=== PATIENT | male | born 1970 | race African-American/Black ===

== ENCOUNTER 2021-03-19 17:29 | Observation (INO) | payer BC ==
[~2021-03-19] VITALS: Ht 188 cm; Wt 127.3 kg
--- NOTE | 2021-03-19 18:22 | PHYS DOC ---
Past History Past Surgical History: Other Additional Past Surgical Histo: skin graft right lower leg Alcohol Use: Occasionally General Adult EDM: Chief Complaint: CELLULITIS HPI: HPI: ".. I ve been seeing a wound care clinic for 3 yrs on this venous stasis ulcer and cellulitis treatment.... But had not had any treatment for the past 4 weeks because we just moved here and I have not been able to get plugged into a wound care clinic.... Now it has gotten really painful and draining any increase edema... Been trying to keep it clean and treated at home by myself until I got in to a wound care clinic... Bottom afraid it has gotten ahead of me.... We just moved down here from [place].. Patient is a 51 year old male who presents with above hx and complaints of vienous stasis ulcer on Rt leg venous stasis ulcer the last three years. Patient has a large somewhat demarcated area of cellulitis and venous stasis ulcer. Has been apparently applying pressure dressing and clean gauze with significant serious drainage. Patient denies any history immunosuppression. Recent travel 4 weeks ago from [place]. Patient has completed Moderna first vaccination on Sunday. Has not completed flu vaccination. Does not remember his last tetanus. Review of Systems: Review of Systems: Constitutional: Denies fever or chills Eyes: Denies change in visual acuity HENT: Denies nasal congestion or sore throat Respiratory: Denies cough or shortness of breath Cardiovascular: Denies chest pain or edema GI: Denies abdominal pain, nausea, vomiting, bloody stools or diarrhea : Denies dysuria Musculoskeletal: Denies back pain or joint pain Integument: Right lower leg venous stasis ulcer chronic Neurologic: Denies headache, focal weakness or sensory changes Endocrine: Denies polyuria or polydipsia Lymphatic: Denies swollen glands Psychiatric: Denies depression or anxiety Family History: Family History: Noncontributory presentation Current Medications: Current Meds: Current Medications Medications (Trade) Dose Ordered Sig/Freddie Start Time Stop Time Status Last Admin Dose Admin Ceftriaxone Sodium (Rocephin Im) 1 gm 1X ONCE 03/19/21 18:30 03/19/21 18:31 UNV Diphtheria/ Pertussis/Tetanus Vacc (ADACEL TDap SYRINGE) 0.5 ml ONCE ONCE 03/19/21 18:30 03/19/21 18:31 UNV Lactated Ringer's 1,000 ml @ 1,000 mls/hr Q1H 03/19/21 18:30 03/19/21 19:29 UNV Morphine Sulfate (Morphine 10mg Syringe) 10 mg 1X ONCE 03/19/21 18:30 03/19/21 18:31 UNV Trimethoprim/ Sulfamethoxazole (Bactrim Ds) 1 tab 1X ONCE 03/19/21 18:30 03/19/21 18:31 UNV Allergies: Allergies: Allergies Coded Allergies Type Severity Reaction Last Updated Verified No Known Drug Allergies 03/19/21 No Physical Exam: PE: Constitutional: Moderate acute distress, non-toxic appearance. [] HENT: Normocephalic, atraumatic, bilateral external ears normal, oropharynx moist, no oral exudates, nose normal. [] Eyes: PERRLA, EOMI, conjunctiva normal, no discharge. [] Neck: Normal range of motion, no tenderness, supple, no stridor. [] Cardiovascular:Heart rate regular rhythm, no murmur [] Lungs & Thorax: Bilateral breath sounds equal apex with basilar crackles bilaterally on auscultation [] Abdomen: Bowel sounds normal, soft, no tenderness, no masses, no pulsatile masses. [] Skin: Warm, dry, no erythema, extensive right lower leg venous stasis ulcer and skin breakdown. Back: No tenderness, no CVA tenderness. [] Extremities: No tenderness, no cyanosis, no clubbing, ROM intact, bilateral ankle mid shaft edema. [] Neurologic: Alert and oriented X 3, normal motor function, normal sensory function, no focal deficits noted. [] Psychologic: Affect anxious, judgement normal, mood normal. [] Current Patient Data: Vital Signs: Vital Signs Date Time Temp Pulse Resp B/P (MAP) Pulse Ox O2 Delivery O2 Flow Rate FiO2 03/19/21 18:00 98.5 92 18 140/77 (98) 100 Room Air EKG: EKG: [] Radiology/Procedures: Radiology/Procedures: [] Impressions: [address] [address] IMAGING REPORT Signed PATIENT: LUCY CARDOZA ACCOUNT: [id number] : 1970 LOCATION: [address] [place] [address] AGE: 51 SEX: M EXAM STATUS: ADM IN ORD. PHYSICIAN: HA SUAREZ MD REASON: pain, OPEN WOUND X 3 YEARS, ENTIRE DISTAL HALF OF LOW LEG. PROCEDURE: TIBIA FIBULA RIGHT Exam: Right tibia and fibula 2 views INDICATION: Open wound 3 years TECHNIQUE: Frontal and lateral views left tibia and fibula Comparisons: None FINDINGS: Bone mineralization is normal. There is irregular periosteal reaction along the medial aspect of the distal tibia. There is diffuse soft tissue swelling overlying. No acute fractures identified. IMPRESSION: Mild periosteal reaction along the distal aspect of the tibia medially which could relate to an underlying infectious or inflammatory process. No acute fracture identified. Electronically signed by: Gautam Inman MD (03/19/2021 8:01 PM) [facility] DICTATED AND SIGNED BY: GAUTAM INMAN MD DATE: 03/19/211999 CC: HA SUAREZ MD; LIZETTE HERNANDEZ MD; PCP,NO ~MTH0 0 Heart Score: C/O Chest Pain: N/A HEART Score for Chest Pain: HEART Score for Chest Pain Response (Comments) Value History Slighlty/Non-Suspicious 0 ECG Normal 0 Age < 45 0 Risk Factors 1 or 2 Risk Factors 1 Total 1 Risk Factors: Risk Factors: DM, Current or recent (<one month) smoker, HTN, HLP, family hist ory of CAD, obesity. Risk Scores: Score 0 - 3: 2.5% MACE over next 6 weeks - Discharge Home Score 4 - 6: 20.3% MACE over next 6 weeks - Admit for Clinical Observation Score 7 - 10: 72.7% MACE over next 6 weeks - Early Invasive Strategies Course & Med Decision Making: Course & Med Decision Making Pertinent Labs and Imaging studies reviewed. (See chart for details) Discussed presentation, treatment plan with - Admit to his service. Hospital for stabilization of his venous stasis ulcer and referral to a chronic maintenance clinic. Twice a day dressing changes. Will cover with some antibiotics at this time. Doppler and US studies in AM. Impression: 1. Cellulitis right leg 2. Venous stasis ulcer right leg 3. Mild anemia hemoglobin 9.0 4. Thrombocytosis 609 [] Kenneth Disclaimer: Kenneth Disclaimer: This electronic medical record was generated, in whole or in part, using a voice recognition dictation system. Departure Departure: Referrals: PCP,NO (PCP) Kenneth Disclaimer This chart was dictated in whole or in part using Voice Recognition software in a busy, high-work load, and often noisy Emergency Department environment. It may contain unintended and wholly unrecognized errors or omissions. Dragon Disclaimer This chart was dictated in whole or in part using Voice Recognition software in a busy, high-work load, and often noisy Emergency Department environment. It may contain unintended and wholly unrecognized errors or omissions. HA SUAREZ MD Mar 19, 2021 18:21
[2021-03-19] MEDS ORDERED: IV RINGERS SOLUTION,LACTATED 1,000 ML IV SCH (18:30)
[2021-03-19] MEDS ORDERED: SMZ/TMP 800/160MG TABLET. PO ONE (18:30)
[2021-03-19] MEDS ORDERED: DIPH,PERTUSS(ACELL),TET VAC/PF 0.5 ML SYRINGE. VAX IM ONE ×2 (18:30→19:40)
[2021-03-19] MEDS ORDERED: MORPHINE SULFATE 10 MG/ML SYRINGE. SQ ONE ×2 (18:30→19:00)
[2021-03-19] MEDS ORDERED: cefTRIAXone IM 1 GM VIAL IM ONE (18:30)
[2021-03-19] MEDS ORDERED: ONDANSETRON PF 4 MG/2 ML VIAL. IVP PRN ×2 (19:00→21:15)
[2021-03-19] MEDS ORDERED: VANCOMYCIN PER PHARMACY MC PRN (19:00)
[2021-03-19] MEDS ORDERED: VANCOMYCIN 1 GM in IV NORMAL SALINE 250ML 250 ML IV SCH (19:00)
[2021-03-19] MEDS: IPRATRPIUM/ALBUTEROL 0.5/2.5MG 3 ML NEBU. NEB SCH (19:25)
[2021-03-19] MEDS ORDERED: cefTRIAXone SODIUM 1 GM VIAL ONE (19:41)
[2021-03-19] MEDS ORDERED: VANCOMYCIN 2 GM in IV NORMAL SALINE 500ML 500 ML IV ONE (20:00)
--- NOTE | 2021-03-19 20:04 | RAD ---
Exam: Right tibia and fibula 2 views INDICATION: Open wound 3 years TECHNIQUE: Frontal and lateral views left tibia and fibula Comparisons: None FINDINGS: Bone mineralization is normal. There is irregular periosteal reaction along the medial aspect of the distal tibia. There is diffuse soft tissue swelling overlying. No acute fractures identified. IMPRESSION: Mild periosteal reaction along the distal aspect of the tibia medially which could relate to an under lying infectious or inflammatory process. No acute fracture identified. Electronically signed by: Gautam Ervin MD (03/19/2021 8:01 PM) [facility]
--- NOTE | 2021-03-19 20:41 | NUR ---
The patient, LUCY CARDOZA, 51 y/o, M admitted by LIZETTE HERNANDEZ MD, was given written information regarding hospital policies, unit procedures and contact persons. Oriented to unit. Valuables were checked and left with pt.
[2021-03-19 21:05] LABS: BASO # 0.1 x10^3/uL (0.0-0.2); BASO % 2 % (0-3); EOS # 0.2 x10^3/uL (0.0-0.7); EOS % 2 % (0-3); HEMATOCRIT 29.4 % (39.0-53.0); LYMPH % 34 % (24-48); MEAN CORPUSCULAR HEMOGLOBIN 24 pg (25-35); MEAN CORPUSCULAR HGB CONC 31 g/dL (31-37); MEAN CORPUSCULAR VOLUME 80 fL (79-100); MONO # 0.7 x10^3/uL (0.0-1.1); MONO % 8 % (0-9); NEUT # 4.8 x10^3uL (1.8-7.7); NEUT % 54 % (31-73); PLATELET COUNT 609 x10^3/uL (140-400); RED CELL DISTRIBUTION WIDTH 20.9 % (11.5-14.5); WHITE BLOOD COUNT 8.8 x10^3/uL (4.0-11.0)
[2021-03-19] MEDS: MORPHINE SULFATE 4 MG/ML DISP.SYRIN. IV PRN (21:09)
[2021-03-19] MEDS ORDERED: IV NORMAL SALINE 1,000ML 1,000 ML IV SCH (21:15)
[2021-03-19 21:29] LABS: ANISOCYTOSIS MOD; HYPOCHROMIA SLIGHT; PLT ESTIMATE INCREASED (ADEQUATE); SPHEROCYTES OCC
[2021-03-19 21:30] LABS: CALCIUM 8.8 mg/dL (8.5-10.1); CREATININE 0.9 mg/dL (0.7-1.3); GFR 108.5
[2021-03-19] MEDS ORDERED: LOSA100T14 PO (22:11)
[2021-03-19] MEDS ORDERED: OXYC30TA64 PO (22:11)
[2021-03-19] MEDS ORDERED: CETI10TA74 PO (22:11)
[2021-03-19] MEDS ORDERED: MONT10TA80 PO (22:11)
[2021-03-19] MEDS ORDERED: NICO1PAT25 TP (22:11)
[2021-03-19] MEDS ORDERED: HYDR50TA9 PO (22:11)
[2021-03-19] MEDS: CLINDAMYCIN 600MG PREMIX 50 ML IV SCH (22:55)
[2021-03-20] MEDS: PIPERACILLIN/TAZOBACTAM 3.375 GM in IV NORMAL SALINE 50ML 50 ML IV SCH ×3 (00:10→13:02)
[2021-03-20 00:14] VITALS: BP 132/69
--- NOTE | 2021-03-20 00:26 | NUR ---
Large open wound to RLE, approx 12-14 inches long covering entire anterior and both left/right lateral sides; extends deep into tissue, raw beefy red with yellow areas, weeping; photos taken and placed in chart; spoke with Dr.Madi monroy: wound condition, dressing options, and medication orders; area cleaned with normal saline; dressed with xeroform guaze, ABD pads, and kerlex; pt states had been going to wound care weekly in [place] until 3 weeks ago, has been cleaning at home with Dakins solution and applying Aquacel dressings; wound care consult ordered.
[2021-03-20] MEDS: MORPHINE SULFATE 4 MG/ML DISP.SYRIN. IV PRN ×5 (01:19→14:42)
--- NOTE | 2021-03-20 01:59 | NUR ---
Pharmacy Vancomycin Dosing Note S:Consulted to monitor and dose vancomycin started 03/19/21. O:LUCY CARDOZA is a 51 year old M with Cellulitis, . Height: 6 feet, 2 inches Weight: 127.3 kg [place] Body Weight: 82.20 Adjusted Body Weight: 100.24 Dosing Weight: Actual Other Antibiotics: CLINDAMYCIN 600 Q8H ZOSYN 3.375 GM Q6H LABS: Last BUN: 14 Last Creatinine: 0.9 Creatinine Clearance: 140 Last WBC: 8.8 Last Procalcitonin: Tmax (past 24 hours): Microbiology: I/O: Drug Levels: Last level: on at Last dose given 03/19/21 at 2100 Vancomycin Dosing: Loading Dose: 2000 mg x1 Dosing Weight: Actual Target Trough: 10-20 A: Based on: WT AND CRCL P: 1. Begin Vancomycin 1500 mg IV q8h 2. Follow up Trough level on 03/20/21 at 2130 3. Pharmacy will continue to monitor, follow and adjust therapy as needed. TOMAS BARNES RPH, 03/20/21 0159 Signed: 03/20/21 at 0100 by TOMAS BARNES RPH PHA
[2021-03-20] MEDS: IPRATRPIUM/ALBUTEROL 0.5/2.5MG 3 ML NEBU. NEB SCH (02:22)
[2021-03-20] MEDS: VANCOMYCIN 1.5 GM in IV NORMAL SALINE 500ML 500 ML IV SCH ×2 (04:34→16:07)
[2021-03-20 06:14] VITALS: BP 130/77
[2021-03-20 07:53] LABS: BASO % 0 % (0-3); EOS # 0.1 x10^3/uL (0.0-0.7); EOS % 2 % (0-3); HEMATOCRIT 28.1 % (39.0-53.0); HEMOGLOBIN 8.5 g/dL (13.0-17.5); LYMPH # 1.6 x10^3/uL (1.0-4.8); LYMPH % 21 % (24-48); MEAN CORPUSCULAR HEMOGLOBIN 24 pg (25-35); MEAN CORPUSCULAR HGB CONC 30 g/dL (31-37); MEAN CORPUSCULAR VOLUME 79 fL (79-100); MONO # 0.7 x10^3/uL (0.0-1.1); MONO % 9 % (0-9); NEUT # 5.1 x10^3uL (1.8-7.7); NEUT % 68 % (31-73); PLATELET COUNT 528 x10^3/uL (140-400); RED BLOOD COUNT 3.58 x10^6/uL (4.30-5.70); RED CELL DISTRIBUTION WIDTH 20.8 % (11.5-14.5); WHITE BLOOD COUNT 7.5 x10^3/uL (4.0-11.0)
[2021-03-20 07:58] LABS: CALCIUM 8.2 mg/dL (8.5-10.1); CREATININE 0.9 mg/dL (0.7-1.3); GFR 108.5; POTASSIUM 3.7 mmol/L (3.5-5.1)
[2021-03-20] MEDS: CLINDAMYCIN 600MG PREMIX 50 ML IV SCH ×2 (08:41→16:14)
[2021-03-20] MEDS ORDERED: SMZ/TMP 800/160MG TABLET. PO SCH (09:00)
[2021-03-20 11:30] VITALS: BP 107/59
[2021-03-20] MEDS ORDERED: NICOTINE 14MG PATCH. TD SCH (15:00)
--- NOTE | 2021-03-20 16:00 | HP ---
DATE OF SERVICE: 03/20/2021 ADMIT DATE: 03/19/2021 HISTORY OF PRESENT ILLNESS: The patient is a 51-year-old male patient who came to the Emergency Room with a complaint of venous stasis ulcer and cellulitis of his right leg that has been going on for almost 3 years. He apparently was living in [place] and was seen there before by a plastic surgeon and also a vein specialist. He underwent skin graft once in 06/2019 that has failed to take. He underwent what seemed to be sclerotherapy without much improvement. The patient has not had any treatment for the last 4 weeks because he just moved here and was unable to get into a wound care clinic. He stated that the ulcer gets very painful and draining. He was trying to keep it clean and treated at home by himself till he get into a wound care clinic; however, he is worried that his ulcer is getting worse and that is why he presented to Emergency Department at the [facility]. On arrival to the Emergency Room, he was found to have a large somewhat well demarcated area of bacterial skin loss with islands of intact skin in the middle. He apparently was applying pressure dressing and clean gauze with significant serous drainage. He apparently completed his first set of vaccination for COVID-19 last Sunday. He has not completed yet flu vaccination. PAST MEDICAL HISTORY: Significant for hypertension and venous stasis ulcer that has been going on for almost 3 years now. PAST SURGICAL HISTORY: Significant for split thickness skin graft done in 06/2019 that has failed and he has also sclerotherapy by a vein specialist. ALLERGIES: He has no known drug allergies. MEDICATIONS: He is currently on following medications: He is on cetirizine 10 mg once a day, Nicoderm patches 14 mg topically daily. He is on losartan potassium 100 mg once a day, OxyContin 30 mg twice a day, hydrochlorothiazide 25 mg daily and Singulair 10 mg once a day. FAMILY HISTORY: His father and does not know him. His mother at age of 57 because of bone cancer. SOCIAL HISTORY: He is , has two 2 sons and 1 daughter. He smokes less than a pack a day, drinks alcohol occasionally. Does not use any drugs. 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 REVIEW OF SYSTEMS: As per history of present illness. PHYSICAL EXAMINATION: GENERAL: On arrival to the Emergency Room, he looked well and was clearly in no apparent respiratory distress. There is no pallor, jaundice, cyanosis or thyromegaly. No jugular venous distention. No lower limb edema. VITAL SIGNS: His heart rate was 80, blood pressure was 132/69. His temperature was 98.5, respiratory rate was 16 and oxygen saturation was 99% on room air. HEAD, EYES, EARS, NOSE AND THROAT: Normocephalic, atraumatic. NECK: Supple. HEART: Showed normal first and second heart sounds. No gallop, rub or murmur. CHEST: Clear to auscultation. No crepitation or rhonchi. ABDOMEN: Distended, soft, nontender. NEUROLOGIC: He is awake, alert, responding appropriately. All cranial nerves intact. He moves extremities without difficulty. Examination of the right leg compared to the left showed that he has an area of basically a large ulcer that is circumferential and extends from slightly above both ankle joint all the way to below the right knee circumferential. The skin has completely lost; however, there are some areas of intact skin that are still there and viable. RADIOLOGIC DATA: The patient has had x-ray of the tibia and fibula, which showed that the patient has mild periosteal reaction along the distal aspect of the tibia medially, which could relate to an underlying infectious or inflammatory process, no acute fracture identified. ASSESSMENT AND PLAN: The patient was admitted to [facility] and was started on multiple antibiotic including vancomycin, Zosyn as well as clindamycin. We will also continue all his other medications. Given the length of time that this ulcer is there, I am concerned that he might have some underlying malignancy and I recommended the patient be transferred to [facility] to be seen by the wound care team, Infectious Disease and vascular surgeon. He stated that he would like to discuss this with his before he make a decision. TIANNA CARPENTER: Sanket TID: [id number]
[2021-03-20 16:21] VITALS: BP 117/68
[2021-03-20 19:25] VITALS: BP 121/65
--- NOTE | 2021-03-20 19:30 | NUR ---
Vitals assessed. Pt resting in bed watching television when EMS arrived. Pt stood to pivot onto EMS gurney. Vancomycin infusion not complete, sent with pt and running as ordered. All pt belongings sent with pt.
--- NOTE | 2021-03-20 19:44 | DS ---
DATE OF DISCHARGE: 03/20/2021 HOSPITAL COURSE: The patient is a 51-year-old male patient who presented to the Emergency Room for an ulcer on his right leg that has been there for almost 3 years, according to him. He has not had any treatment for the past 4 weeks because he has just moved here from [place]. The pain has been really getting worse, that only increased drainage and edema. He tried to keep it clean and treated at home by himself and that he got into the wound care clinic; however, because of the worsening pain and drainage, he decided to come to the Emergency Room where he was evaluated and was found to have what seemed to be venous stasis ulcer with loss of the full thickness of the skin. Apparently, an attempt at split thickness skin graft has failed in June 2019. He underwent sclerotherapy for his varicose veins without really much improvement in his condition and given the finding, I did start him on IV antibiotics and decision was made to transfer him to [facility] to consult the wound care team, the vascular surgeon and infectious disease and he might also require a biopsy given possibility of underlying malignancy is Marjolin ulcer. PHYSICAL EXAMINATION: GENERAL: When I saw him this afternoon, he looked well and was clearly in no apparent respiratory distress. No pallor, jaundice, cyanosis or thyromegaly. No jugular venous distention. No lower limb edema. VITAL SIGNS: His heart rate was 76, blood pressure was 107/59, temperature was 98.3, respiratory rate was 18 and oxygen saturation was 96%. Rest clinical exam stable. The wound on his right leg is covered with dressing. LABORATORY DATA: Showed a white cell count 7500, hemoglobin 8.5, hematocrit 28, MCV 79 and platelet count 528,000. His chemistry showed a serum sodium 135, potassium 3.7, chloride 103, bicarbonate 26, anion gap of 6, BUN 11, creatinine 0.9. Estimated GFR was 108 mL per minute. His glucose was 93 and calcium was 8.2. His coronavirus PCR was negative. He was transferred to [facility] to continue on IV antibiotics in the form of vancomycin and Zosyn as well as clindamycin. Continue with cetirizine 10 mg once a day, hydrochlorothiazide 25 mg once a day, losartan potassium 100 mg once a day, montelukast sodium 10 mg at bedtime, OxyContin 30 mg twice a day, Nicoderm patch 14 mg topically daily. FINAL DISCHARGE DIAGNOSES: 1. Venous stasis ulcer versus necrotizing fasciitis versus Marjolin ulcer. 2. Hypertension. 3. Nicotine dependence. FADY DR: Sanket TID: [id number]
[2021-03-20] MEDS ORDERED: MONTELUKAST 10 MG TABLET. PO SCH (21:00)
[2021-03-20] MEDS ORDERED: oxyCODONE ER 15 MG TAB.ER.12H PO SCH (21:00)
[2021-03-21] MEDS ORDERED: hydroCHLOROthiazide 25 MG TABLET. PO SCH (09:00)
[2021-03-21] MEDS ORDERED: CETIRIZINE HCL 10 MG TABLET PO SCH (09:00)
[2021-03-21] MEDS ORDERED: LOSARTAN 50 MG TABLET. PO SCH (09:00)
== END 2021-03-20 19:30 | disposition short-term general hospital (02) ==
LOC: ER 17:29 → INTOOBSV 18:59 → 1 SOUTH 18:59
PROVIDERS: ADMIT Internal Medicine; ATTEND Internal Medicine
DX: L03.115 Cellulitis of right lower limb (principal); Z20.822 Contact with and (suspected) exposure to COVID-19; I83.019 Varicose veins of right lower extremity with ulcer of unspecified site; I10 Essential (primary) hypertension; D64.9 Anemia, unspecified; D75.839 Thrombocytosis, unspecified; L97.919 Non-pressure chronic ulcer of unspecified part of right lower leg with unspecified severity; F17.210 Nicotine dependence, cigarettes, uncomplicated; Z23 Encounter for immunization; Z79.899 Other long term (current) drug therapy; Z98.890 Other specified postprocedural states; Z71.85 Encounter for immunization safety counseling
CPT/HCPCS: 36415; 73590; 80048; 85007; 85025; 87040; 87426; 90471; 90715; 96365; 96366; 96367; 96372; 96375; 96376; 99284; G0238; G0378; J0696; J2270; J2543; J3370; J3490; J7030; J7040; J7120; U0003; G0379